=== PATIENT | female | born 1930 | race African-American/Black ===

== ENCOUNTER 2018-02-06 16:49 | Observation (INO) ==
[2018-02-06] MEDS ORDERED: Morphine Inj 4 MG/ML Vial IV.PUSH ONE (17:06)
--- NOTE | 2018-02-06 18:05 | ED ---
HPI General Chief Complaint: Chest Pain Stated Complaint: Chest Pain Time Seen by Provider: 02/06/18 16:55 Source: patient and EMS Mode of arrival: EMS Limitations: no limitations History of Present Illness HPI narrative: 87-year-old female the presents to the ED for evaluation of chest pain and abdominal pain. Patient's had chest pain and abdominal pain for about an hour before coming. Per patient she was sitting when the pain started. Most of the pain appears to be from what patient is telling me and pointing to the right epigastric area of the abdomen and the chest and states that if feels like she has palpitations. Per patient she does not feel nauseous or vomit. She denies any history of this in the past. She is not a great historian but states that she does not take any blood thinners. She denies any history of heart disease on herself. Unclear if she takes any medications at this time. She states that she does get some shortness of breath with it. She was given nitroglycerin and aspirin with some improvement of symptoms from pain being in the 8 out of 10 to the 6 out of 10. She was found to be hypertensive by [facility]. Related Data Home Medications Medication Instructions Recorded Confirmed Unable to Obtain Home Meds 02/06/18 02/06/18 Allergies Allergy/AdvReac Type Severity Reaction Status Date / Time No Known Allergies Allergy Verified 02/06/18 17:02 Review of Systems ROS: all other systems reviewed are negative [facility] Medical History Medical History COPD (chronic obstructive pulmonary disease) (Acute) Palpitations (Acute) Social History Social History Smoking Status: Never smoker How Often Do You Have a Drink Containing Alcohol: Never Recent Travel in [facility] within the Last 8 Weeks: No Recent Out of Country Travel within the Last 8 Weeks: No Immunization History Tetanus Immunization: Unsure Exam Narrative Exam Narrative: GENERAL: Well appearing SKIN: Focused skin assessment warm/dry. HEAD: Atraumatic. Normocephalic. EYES: Pupils equal and round. No scleral icterus. No injection or drainage. ENT: No nasal bleeding or discharge. Mucous membranes pink and moist. Tongue is midline. No uvula deviation. NECK: Trachea midline. No JVD. CARDIOVASCULAR: Regular rate and rhythm. No murmur appreciated. RESPIRATORY: No accessory muscle use. Clear to auscultation. Breath sounds equal bilaterally. GASTROINTESTINAL: Abdomen soft, tender to touch in the epigastric area, nondistended. Hepatic and splenic margins not palpable. MUSCULOSKELETAL: No obvious deformities. No clubbing. No cyanosis. No edema. Full range of motion of the upper and lower extremities bilaterally. 2+ pulses bilaterally. NEUROLOGICAL: Awake and alert. No obvious cranial nerve deficits. Motor grossly within normal limits. Normal speech. PSYCHIATRIC: Appropriate mood and affect; insight and judgment normal. Course Initial Documented Vital Signs Temperature 98.8 F 02/06/18 16:57 Pulse Rate 61 02/06/18 16:57 Respiratory Rate 20 02/06/18 16:57 Blood Pressure 200/91 H 02/06/18 16:57 Pulse Oximetry 99 02/06/18 16:57 Last Documented Vital Signs Temperature 98.8 F 02/06/18 16:57 Pulse Rate 60 02/06/18 19:05 Respiratory Rate 17 02/06/18 19:05 Blood Pressure 183/77 H 02/06/18 19:05 Pulse Oximetry 99 02/06/18 19:05 Medical Decision Making [facility] Narrative Medical decision making narrative: 87-year-old female that presents to the ED for evaluation of chest pain and abdominal pain. Patient was properly examined and was found to have signs and symptoms which appeared to be more consistent with abdominal pain. Labs and imaging were ordered. Labs and imaging showed some gallstones but otherwise unremarkable exam. No sign of cholecystitis. No sign of heart disease at this time. Recommendation by my attending Dr. Peña is for admission to the chest pain center for further evaluation. Spoke with the family and patient in length and apparently patient has had some episodes like this in the past. She is currently following with a GI doctor for the gallbladder but currently they have no intention of doing any surgery. They have never done a stress test on her and she does have risk factors including high blood pressure, age and family history. Because of this at the recommend admission to chest pain center for chest pain center rule out. Per family the way she describes the pain is more like pressure on her mid chest and goes from one side to the other. Patient was already given aspirin and nitroglycerin by [facility]. When I went to talk to the family and patient about the results patient was completely pain-free. Patient and family agree with admission to the chest pain center for chest pain center rule out. Patient was admitted to chest pain center by me. Medical Screen Exam Complete: Yes Emergency Medical Condition: Yes Differential Diagnosis Differential Diagnosis: Chest pain versus typical chest pain versus gallbladder disease versus pancreatitis versus acute abdomen versus normal exam Medical Records Medical records reviewed: Yes I reviewed the patient's medical records. Lab Data Lab results reviewed: Yes I reviewed the patient's lab results. Lab results narrative: troponin and CK negative Result diagrams: 02/06/18 17:15 02/06/18 17:15 Lab Results 02/06/18 02/06/18 02/06/18 Range/Units 17:15 17:15 17:15 WBC 8.3 (4.0-11.0) th/mm3 RBC 3.98 L (4.00-5.30) mil/mm3 Hgb 13.6 (11.6-15.3) gm/dL Hct 38.1 (35.0-46.0) % MCV 95.9 (80.0-100.0) fL MCH 34.1 H (27.0-34.0) pg MCHC 35.6 (32.0-36.0) % RDW 14.3 (11.6-17.2) % Plt Count 191 (150-450) th/mm3 MPV 10.2 (7.0-11.0) fL Prelim Diff (Auto) Slide review pending Neut % (Auto) 57.3 (16.0-70.0) % Lymph % (Auto) 31.3 (9.0-44.0) % [place] % (Auto) 9.1 H (0.0-8.0) % Eos % (Auto) 1.6 (0.0-4.0) % Baso % (Auto) 0.7 (0.0-2.0) % Neut # (Auto) 4.8 (1.8-7.7) th/mm3 Lymph # (Auto) 2.6 (1.0-4.8) th/mm3 [place] # (Auto) 0.8 (0.0-0.9) th/mm3 Eos # (Auto) 0.1 (0.0-0.4) th/mm3 Baso # (Auto) 0.1 (0.0-0.2) th/mm3 WBC Differential . Diff Scan Auto diff confirmed Differential Comment . Platelet Estimate Normal (Normal) Platelet Morphology Normal (Normal) PT 10.3 (9.8-11.6) sec INR 1.0 Ratio APTT 22.2 L (24.3-30.1) sec Sodium 138 (136-145) meq/L Potassium 4.9 (3.5-5.1) meq/L Chloride 104 (98-107) meq/L Carbon Dioxide 26.8 (21.0-32.0) meq/L Anion Gap 7 (5-15) meq/L BUN 20 H (7-18) mg/dL Creatinine 0.91 (0.50-1.00) mg/dL Estimated GFR 71 L (>89) mL/min Random Glucose 89 (74-106) mg/dL Lactic Acid (0.4-2.0) mmol/L Calcium 9.3 (8.5-10.1) mg/dL Total Bilirubin 0.7 (0.2-1.0) mg/dL AST 34 (15-37) U/L ALT 23 (10-53) U/L Alkaline Phosphatase 99 (45-117) U/L Total Creatine Kinase 121 (26-192) U/L CK-MB (CK-2) Less than 1.0 (0.5-3.6) ng/mL Troponin I Less than 0.02 L (0.02-0.05) ng/mL Total Protein 8.2 (6.4-8.2) g/dL Albumin 3.6 (3.4-5.0) g/dL Lipase 55 L (73-393) U/L 02/06/18 Range/Units 18:00 WBC (4.0-11.0) th/mm3 RBC (4.00-5.30) mil/mm3 Hgb (11.6-15.3) gm/dL Hct (35.0-46.0) % MCV (80.0-100.0) fL MCH (27.0-34.0) pg MCHC (32.0-36.0) % RDW (11.6-17.2) % Plt Count (150-450) th/mm3 MPV (7.0-11.0) fL Prelim Diff (Auto) Neut % (Auto) (16.0-70.0) % Lymph % (Auto) (9.0-44.0) % [place] % (Auto) (0.0-8.0) % Eos % (Auto) (0.0-4.0) % Baso % (Auto) (0.0-2.0) % Neut # (Auto) (1.8-7.7) th/mm3 Lymph # (Auto) (1.0-4.8) th/mm3 [place] # (Auto) (0.0-0.9) th/mm3 Eos # (Auto) (0.0-0.4) th/mm3 Baso # (Auto) (0.0-0.2) th/mm3 WBC Differential Diff Scan Differential Comment Platelet Estimate (Normal) Platelet Morphology (Normal) PT (9.8-11.6) sec INR Ratio APTT (24.3-30.1) sec Sodium (136-145) meq/L Potassium (3.5-5.1) meq/L Chloride (98-107) meq/L Carbon Dioxide (21.0-32.0) meq/L Anion Gap (5-15) meq/L BUN (7-18) mg/dL Creatinine (0.50-1.00) mg/dL Estimated GFR (>89) mL/min Random Glucose (74-106) mg/dL Lactic Acid 1.4 (0.4-2.0) mmol/L Calcium (8.5-10.1) mg/dL Total Bilirubin (0.2-1.0) mg/dL AST (15-37) U/L ALT (10-53) U/L Alkaline Phosphatase (45-117) U/L Total Creatine Kinase (26-192) U/L CK-MB (CK-2) (0.5-3.6) ng/mL Troponin I (0.02-0.05) ng/mL Total Protein (6.4-8.2) g/dL Albumin (3.4-5.0) g/dL Lipase (73-393) U/L Imaging Data Attestation: I personally reviewed and interpreted this imaging study as follows : Radiologist's impression: Abdomen/Pelvis CT 02/06/18 17:06 CONCLUSION: 1. Prominent gallbladder without definite gallstones 2. Large amount of stool seen throughout the colon 3. Lung bases are clear. Gallbladder Ultrasound 02/06/18 17:06 CONCLUSION: 1. Gallstones in a somewhat benign-appearing gallbladder without tenderness to palpation. Chest X-Ray 02/06/18 21:58 CONCLUSION: Negative for an acute process ECG Data Attestation: I personally reviewed and interpreted this ECG as follows: Interpretation: EKG shows junctional rhythm with no sign of acute ischemia and arrhythmia. [place] interval of 128 ms, ventricular rate of 61 bpm. No sign of ST elevation read by me and attending. Discharge Plan Discharge Disposition Patient Disposition: 30 Still Patient Discharge Details Diagnosis: Chest pain Physicians Team ED Provider: Anjali Peña ED Midlevel Provider: Jose Bah Primary Care Provider: UNKNOWN, Attending Provider: Raj Lugo Status ED Status: Admitted Observation Patient
[2018-02-06 18:07] LABS: Baso # (Auto) 0.1 th/mm3 (0.0-0.2); Baso % (Auto) 0.7 % (0.0-2.0); Eos # (Auto) 0.1 th/mm3 (0.0-0.4); Eos % (Auto) 1.6 % (0.0-4.0); Hematocrit 38.1 % (35.0-46.0); Hemoglobin 13.6 gm/dL (11.6-15.3); Lymph # (Auto) 2.6 th/mm3 (1.0-4.8); Lymph % (Auto) 31.3 % (9.0-44.0); Mean Corpuscular HGB Conc 35.6 % (32.0-36.0); Mean Corpuscular Hemoglobin 34.1 pg (27.0-34.0); Mean Corpuscular Volume 95.9 fL (80.0-100.0); Mean Platelet Volume 10.2 fL (7.0-11.0); Mono # (Auto) 0.8 th/mm3 (0.0-0.9); Mono % (Auto) 9.1 % (0.0-8.0); Neut # (Auto) 4.8 th/mm3 (1.8-7.7); Neut % (Auto) 57.3 % (16.0-70.0); Platelet Count 191 th/mm3 (150-450); Red Blood Count 3.98 mil/mm3 (4.00-5.30); Red Cell Distribution Width 14.3 % (11.6-17.2); White Blood Count 8.3 th/mm3 (4.0-11.0)
[2018-02-06 18:19] LABS: Activated Partial Thrombo Time 22.2 sec (24.3-30.1); Prothrombin Time 10.3 sec (9.8-11.6)
[2018-02-06 18:36] LABS: Platelet Estimate Normal (Normal); Platelet Morphology Normal (Normal)
[2018-02-06 18:44] LABS: Alanine Aminotransferase 23 U/L (10-53)
[2018-02-06 18:51] LABS: Albumin 3.6 g/dL (3.4-5.0); Alkaline Phosphatase 99 U/L (45-117); Anion Gap 7 meq/L (5-15); Aspartate Aminotransferase 34 U/L (15-37); Blood Urea Nitrogen 20 mg/dL (7-18); Calcium 9.3 mg/dL (8.5-10.1); Carbon Dioxide 26.8 meq/L (21.0-32.0); Chloride 104 meq/L (98-107); Creatine Kinase 121 U/L (26-192); Glomerular Filtration Rate 71 mL/min (>89); Glucose,Random 89 mg/dL (74-106); Lipase 55 U/L (73-393); Potassium 4.9 meq/L (3.5-5.1); Sodium 138 meq/L (136-145); Total Protein 8.2 g/dL (6.4-8.2)
--- NOTE | 2018-02-06 18:54 | US ---
EXAM DATE: 02/06/2018 5:06 PM EDT AGE/SEX: 87 years / Female INDICATIONS: RUQ pain. CLINICAL DATA: This is the patient's initial encounter. Patient reports that signs and symptoms have been present for 1 day and indicates a pain score of 6/10. MEDICAL/SURGICAL HISTORY: . Palpitations. None. COMPARISON: No prior exams available for comparison. MEASUREMENTS: Liver:__ 17.0 cm. Common Bile Duct:__ 3mm. FINDINGS: Liver: Increased echotexture without focal lesion or ductal dilation. Portal Vein: Hepatopedal flow seen in portal vein. Common Duct: No intraluminal mass or stone visualized. Gallbladder: Demonstrates no wall thickening or pericholecystic fluid. Stones visualized. Pancreas: Not well visualized. Right Kidney: Increased echotexture. No mass or hydronephrosis. Other: No ascites CONCLUSION: 1. Gallstones in a somewhat benign-appearing gallbladder without tenderness to palpation. Electronically signed by: Nilton Lewis MD 02/06/2018 6:53 PM EDT
--- NOTE | 2018-02-06 20:24 | CT ---
EXAM DATE: 02/06/2018 7:54 PM EDT AGE/SEX: 87 years / Female INDICATIONS: Epigastric abdomen pain today. CLINICAL DATA: This is the patient's initial encounter. Patient reports that signs and symptoms have been present for 1 day and indicates a pain score of 5/10. MEDICAL/SURGICAL HISTORY: Chronic obstructive pulmonary disease. None. ORAL CONTRAST: No oral contrast ingested. RADIATION DOSE: 6.64 CTDI (mGy) COMPARISON: No prior exams available for comparison. TECHNIQUE: Multiple contiguous axial images were obtained through the abdomen and pelvis following b olus infusion of 80 ml Omnipaque 350 (iohexol) nonionic water-soluble contrast as a single exam dos e. No oral contrast ingested. Using automated exposure control and adjustment of the mA and/or kV ac cording to patient size, radiation dose was kept as low as reasonably achievable to obtain optimal di agnostic quality images. DICOM format image data is available electronically for review and comparis on. FINDINGS: Lower Lungs: The visualized lower lungs are clear. Liver: The liver has a homogeneous density without space-occupying lesion. There is no dilation of th e biliary tree. Gallbladder is prominent without definite stones. Spleen: Homogeneous density without enlargement. Pancreas: Unremarkable without mass or calcification. Kidneys: Normal in size and shape. No evidence of mass or hydronephrosis. Adrenal Glands: Unremarkable. Aorta: The aorta and proximal iliac vessels are grossly unremarkable without aneurysmal dilation. Bowel/Mesentery : large amount of stool is seen throughout the colon Abdominal Wall: Intact. Retroperitoneum: No evidence of adenopathy in the retrocrural, para-aortic, or deep pelvic regions. Bladder: Contours are smooth. Reproductive Organs: No abnormal masses or calcifications seen. Inguinal: The inguinal region is unremarkable without evidence of adenopathy. Bony Structures: Mild scoliosis with degenerative changes. CONCLUSION: 1. Prominent gallbladder without definite gallstones 2. Large amount of stool seen throughout the colon 3. Lung bases are clear. Electronically signed by: Nilton Lewis MD 02/06/2018 8:23 PM EDT
[2018-02-06] MEDS ORDERED: Morphine Inj 4 MG/ML Vial IV.PUSH PRN (21:52)
[2018-02-06] MEDS ORDERED: Acetaminophen 500 MG Tablet PO PRN (21:52)
--- NOTE | 2018-02-06 22:28 | XR ---
EXAM DATE: 02/06/2018 9:58 PM EDT AGE/SEX: 87 years / Female INDICATIONS: Chest pain. CLINICAL DATA: This is the patient's initial encounter. Patient reports that signs and symptoms have been present for 1 day and indicates a pain score of 6/10. MEDICAL/SURGICAL HISTORY: Hypertension. None. COMPARISON: No prior exams available for comparison. FINDINGS: A single AP view of the chest demonstrates the lungs to be symmetrically aerated without evidence of mass, infiltrate or effusion. The cardiomediastinal contours are unremarkable. Osseous structures a re intact. CONCLUSION: Negative for an acute process Electronically signed by: Nilton Lewis MD 02/06/2018 10:27 PM EDT
[2018-02-06 23:34] LABS: Creatine Kinase 49 U/L (26-192)
[2018-02-07 03:29] LABS: Creatine Kinase 59 U/L (26-192)
[2018-02-07 09:17] LABS: Bilirubin,Urine Negative (Negative); Clarity,Urine Clear (Clear); Color,Urine Yellow (Yellw/Straw); Glucose,Urine (UA) Negative (Negative); Leukocyte Esterase,Urine Negative (Negative); Mucus,Urine Few /lpf (Occasional); Nitrite,Urine Negative (Negative); Specific Gravity,Urine 1.049 (1.002-1.035); Squamous Epithelial Cell,Urine <1 /hpf (0-5)
--- NOTE | 2018-02-07 09:56 | P.HPCA ---
History of Present Illness Primary Care Physician: UNKNOWN Chief Complaint: Abdominal pain History of Present Illness: This is an 87-year-old female with history of hypertension, hyperlipidemia, gallstones that presents to ED via [facility] with complaint of abdominal pain. Patient points right upper quadrant. She is currently been having this intermittently for at least 4 months. Has not found any particular to bring on the discomfort. States that yesterday's episode began around 2:00 in the afternoon. She had nothing for lunch. For breakfast she had yogurt, banana, and some Cheerios. And no discomfort afterwards. Denies nausea or vomiting. Denies diarrhea or constipation. States she had a bowel moment yesterday which is her normal bowel and. Denies any blood in stool. Denies shortness of breath or diaphoresis. She also complains of feeling palpitations in her abdomen. She describes it as a throbbing. That is also been intermittent for [address] Alfaro for some of the symptoms and had a Holter monitor and her daughter who is now in the room states that she was told that her thing was okay. Patient also saw a hospice care transitions coordinator and Debbi had some tests done and showed that she had some gallstones but did not feels that that was causing her the issues. She was concerned yesterday when the discomfort was more intense. She does not know how long it lasted but it did resolve some time while in the ED. She denies ever having any chest discomforts. Hypertension, hyperlipidemia, gallstones. Denies diabetes and known CAD. Lifetime non-smoker. Denies alcohol or illicit drug use. Denies family history of CAD. - Diagnosis (1) Abdominal pain (2) Hypertension (3) Hyperlipidemia (4) Gallstones Review of Systems General: Patient denies fevers, chills, and recent travel. HEENT: Patient denies headache, sore throat, difficulty swallowing. Cardiovascular: Denies chest discomfort as mentioned above. Denies sensation of heart beating rapidly or irregularly. No syncope. Denies diaphoresis. Respiratory: Denies shortness of breath or inspirational chest discomfort. Denies coughing wheezing or hemoptysis. GI: Planes of abdominal pain and points to right upper quadrant. Patient denies nausea, vomiting, constipation, diarrhea, and bloody stools. States she had a normal bowel movement yesterday morning. She generally has a daily bowel movement. Musculoskeletal: Patient denies joint pain or edema. Denies calf pain or edema. Neurovascular: Patient denies numbness, tingling, weakness in extremities. Denies headache. Endocrine: Denies polyuria and polydipsia. Hematologic: Denies easy bruising. Skin: Denies rash or itching. PMFSH - History History Provided By: Patient - Medical History Medical History: Medical History (Last Reviewed 02/06/18 @ 18:02 by SANYA Sullivan) COPD (chronic obstructive pulmonary disease) Palpitations - Tobacco History Second Hand Smoke Exposure: No Smoking Status: Never smoker - Alcohol History How Often Do You Have a Drink Containing Alcohol: Never - Substance Use History Substance History: No History of Abuse - Travel History Recent Travel in the [place] Within the Last 8 Weeks: No Recent Travel Out of the Country Within the Last 8 Weeks: No - Immunization History Tetanus Immunization: Unsure Medications and Allergies Active Medications: Active Medications Acetaminophen (Tylenol) 500 mg PO Q4H PRN PRN Reason: HEADACHE Last Admin: 02/07/18 09:02 Dose: 500 mg Hydrocodone Bitart/Acetaminophen (Marydel 7.5/325) 1 tab PO Q4H PRN PRN Reason: PAIN SCALE 1 TO 7 Losartan Potassium (Cozaar) 50 mg PO DAILY [facility] Morphine Sulfate (Morphine Inj) 2 mg IV.PUSH Q4H PRN PRN Reason: PAIN SCALE 8 TO 10 Non-Formulary Medication (Lovastatin [Lovastatin]) 40 mg PO DAILY [facility] Ondansetron HCl (Zofran Inj) 4 mg IV.PUSH Q6H PRN PRN Reason: NAUSEA Sodium Chloride (Ns Flush) 2 ml IV.FLUSH BID [facility] Last Admin: 02/07/18 09:02 Dose: 2 ml Sodium Chloride (Ns Flush) 2 ml IV.FLUSH PRN PRN PRN Reason: FLUSH AFTER USING IV ACCESS Allergies Allergy/AdvReac Type Severity Reaction Status Date / Time No Known Allergies Allergy Verified 02/06/18 17:02 Home Medications Medication Instructions Recorded Confirmed Type aspirin [Aspir-81] 81 mg PO DAILY 02/07/18 02/07/18 History losartan 50 mg PO DAILY 02/07/18 02/07/18 History lovastatin 40 mg PO DAILY 02/07/18 02/07/18 History Exam Vital signs: Vital Signs 02/06/18 16:57 02/06/18 19:05 02/06/18 23:04 Temperature 98.8 F Pulse Rate 61 60 55 L Respiratory Rate 20 17 18 Blood Pressure 200/91 H 183/77 H 150/67 H Pulse Oximetry 99 99 97 02/07/18 00:00 02/07/18 00:09 02/07/18 04:00 Temperature 97.6 F 97.7 F Pulse Rate 57 L 56 L 60 Respiratory Rate 18 18 Blood Pressure 130/59 L 132/59 L Pulse Oximetry 100 97 02/07/18 07:41 02/07/18 08:00 Temperature 97.9 F Pulse Rate 57 L 55 L Respiratory Rate 16 Blood Pressure 164/72 H Pulse Oximetry 97 Intake & Output 02/06/18 02/07/18 02/07/18 18:59 06:59 18:59 Weight 68.039 kg 68.03 kg Other: Date of Last Bowel Movement 02/06/18 Weight On Admission 68.03 kg Narrative: GENERAL: This is a well-nourished, well-developed patient, in no apparent distress. Patient speaks in clear complete sentences. Patient is pleasant. HEENT: Head is atraumatic and normocephalic. Neck is supple without lymphadenopathy and trachea is midline. No JVD or carotid bruits. CARDIOVASCULAR: Regular rate and rhythm without murmurs, gallops, or rubs. RESPIRATORY: Clear to auscultation. Breath sounds equal bilaterally. No wheezes , rales, or rhonchi. Chest wall is nontender. No use of accessory muscles. GASTROINTESTINAL: Right upper quadrant and epigastric region are tender. Abdomen is nondistended. Abdomen soft. No obvious pulsatile mass or bruit. No CVA tenderness. Strong femoral pulses bilaterally. Normal bowel sounds in all quadrants. MUSCULOSKELETAL: Patient is moving upper and lower extremities freely. No calf tenderness or edema, no Homans sign. Strong pulses in upper and lower extremities. NEUROLOGICAL: Patient is alert and oriented. Cranial nerves 2-12 are grossly intact. No focal deficits and speech is clear. SKIN: No rash and turgor is normal. Results 02/06/18 17:15 02/06/18 17:15 Cardiac Enzymes 02/06/18 02/06/18 02/07/18 Range/Units 17:15 22:50 03:00 AST 34 (15-37) U/L CK-MB (CK-2) Less than 1.0 (0.5-3.6) ng/mL Troponin I Less than 0.02 L Less than 0.02 L Less than 0.02 L (0.02-0.05) ng/mL Coagulation 02/06/18 Range/Units 17:15 PT 10.3 (9.8-11.6) sec APTT 22.2 L (24.3-30.1) sec CBC 02/06/18 Range/Units 17:15 WBC 8.3 (4.0-11.0) th/mm3 RBC 3.98 L (4.00-5.30) mil/mm3 Hgb 13.6 (11.6-15.3) gm/dL Hct 38.1 (35.0-46.0) % Plt Count 191 (150-450) th/mm3 Neut # (Auto) 4.8 (1.8-7.7) th/mm3 Lymph # (Auto) 2.6 (1.0-4.8) th/mm3 [place] # (Auto) 0.8 (0.0-0.9) th/mm3 Eos # (Auto) 0.1 (0.0-0.4) th/mm3 Baso # (Auto) 0.1 (0.0-0.2) th/mm3 Comprehensive Metabolic Panel 02/06/18 Range/Units 17:15 Sodium 138 (136-145) meq/L Potassium 4.9 (3.5-5.1) meq/L Chloride 104 (98-107) meq/L Carbon Dioxide 26.8 (21.0-32.0) meq/L BUN 20 H (7-18) mg/dL Creatinine 0.91 (0.50-1.00) mg/dL Calcium 9.3 (8.5-10.1) mg/dL AST 34 (15-37) U/L ALT 23 (10-53) U/L Alkaline Phosphatase 99 (45-117) U/L Total Protein 8.2 (6.4-8.2) g/dL Albumin 3.6 (3.4-5.0) g/dL Intake and Output 02/06/18 02/07/18 02/07/18 22:59 06:59 14:59 Other: Date of Last Bowel Movement 02/06/18 Weight 68.039 kg 68.03 kg Weight On Admission 68.03 kg - Imaging and Cardiology Imaging: Impressions Abdomen/Pelvis CT 02/06/18 17:06 CONCLUSION: 1. Prominent gallbladder without definite gallstones 2. Large amount of stool seen throughout the colon 3. Lung bases are clear. Gallbladder Ultrasound 02/06/18 17:06 CONCLUSION: 1. Gallstones in a somewhat benign-appearing gallbladder without tenderness to palpation. Chest X-Ray 02/06/18 21:58 CONCLUSION: Negative for an acute process EKG interpretations - EKG EKG shows: sinus rhythm Caprini VTE Risk Assessment Caprini VTE Risk Assessment: Moderate/High Risk (score >= 2) Caprini Risk Assessment Model: Point Value = 1 Point Value = 2 Point Value = 3 Point Value = 5 Age 41-60 Minor surgery BMI > 25 kg/m2 Swollen legs Varicose veins or History of unexplained or recurrent spontaneous Oral contraceptives or hormone replacement Sepsis (< 1 month) Serious lung disease, including pneumonia (< 1 month) Abnormal pulmonary function Acute myocardial infarction Congestive heart failure (< 1 month) History of inflammatory bowel disease Medical patient at bed rest Age 61-74 Arthroscopic surgery Major open surgery (> 45 min) Laparoscopic surgery (> 45 min) Malignancy Confined to bed (> 72 hours) Immobilizing plaster cast Central venous access Age >= 75 History of VTE Family history of VTE Factor V Leiden Prothrombin [id number] Lupus anticoagulant Anticardiolipin antibodies Elevated serum homocysteine Heparin-induced thrombocytopenia Other congenital or acquired thrombophilia Stroke (< 1 month) Elective arthroplasty Hip, pelvis, or leg fracture Acute spinal cord injury (< 1 month) Prophylaxis Regimen: Total Risk Factor Score Risk Level Prophylaxis Regimen 0-1 Low Early ambulation 2 Moderate Order ONE of the following: *Sequential Compression Device (SCD) *Heparin 5000 units SQ BID 3-4 Higher Order ONE of the following medications: *Heparin 5000 units SQ TID *Enoxaparin/Lovenox 40 mg SQ daily (WT < 150 kg, CrCl > 30 mL/min) *Enoxaparin/Lovenox 30 mg SQ daily (WT < 150 kg, CrCl > 10-29 mL/min) *Enoxaparin/Lovenox 30 mg SQ BID (WT < 150 kg, CrCl > 30 mL/min) AND/OR *Sequential Compression Device (SCD) 5 or more Highest Order ONE of the following medications: *Heparin 5000 units SQ TID (Preferred with Epidurals) *Enoxaparin/Lovenox 40 mg SQ daily (WT < 150 kg, CrCl > 30 mL/min) *Enoxaparin/Lovenox 30 mg SQ daily (WT < 150 kg, CrCl > 10-29 mL/min) *Enoxaparin/Lovenox 30 mg SQ BID (WT < 150 kg, CrCl > 30 mL/min) AND *Sequential Compression Device (SCD) Assessment and Plan - Assessment (1) Abdominal pain Code(s): R10.9 - Unspecified abdominal pain Status: Acute (2) Hypertension Code(s): I10 - Essential (primary) hypertension Status: Acute (3) Hyperlipidemia Code(s): E78.5 - Hyperlipidemia, unspecified Status: Acute (4) Gallstones Code(s): K80.20 - Calculus of gallbladder without cholecystitis without obstruction Status: Acute - Plan * Abdominal pain: Patient had CT abdomen pelvis and gallbladder ultrasound in the ED. CT and pelvis revealed prominent gallbladder but no stones. Large amount of stool throughout the colon. Gallbladder ultrasound found gallstones, somewhat benign appearing gallbladder without tenderness to palpate. Patient will be evaluated by Dr. Lugo of cardiology and chest pain center and further plan pending that evaluation. Patient denies having chest discomforts. Patient was evaluated by Dr. Lugo [facility] * Hypertension: Continue medication. * Hyperlipidemia: Continue medication. Patient is stable at this time. She is agreeable to this plan. H&P: Quality - VTE Deep Vein Thrombosis/Pulmonary Embolism Present on Admission: No
[2018-02-07] MEDS ORDERED: Sodium Chlor 0.9% Inj 500 ML IV.SIG SCH (11:22)
[2018-02-07] MEDS ORDERED: Aluminum/Magnesium/Simethacone Susp 30 ML UDC PO PRN (12:44)
--- NOTE | 2018-02-07 12:45 | P.PNIM ---
Subjective Interval history: 87-year-old -[place] female with history of HTN and HLD initially admitted to the chest pain center for evaluation of epigastric pain. ACS was ruled out. Cardiology has transferred care so that her epigastric pain can be further worked up from a GI perspective. On admission, gallbladder ultrasound showed gallstones with negative Montemayor sign and CT A/P showed a prominent gallbladder without definite gallstones. She has no leukocytosis, fever, and her LFTs and lipase were within normal limits. Urinalysis was negative for infection. The patient states that her pain is predominantly located in the epigastric region and described as sharp. It radiates into the right and left upper quadrants. The pain has been present for at least 3-4 months. She states spicy and fried foods exacerbate her pain; however, yesterday she states she had some Cheerios and a banana for breakfast in the morning but then the pain began around 2 PM without eating anything right prior. She has been told she had gallstones in the past but she states she will not have elective surgery at her age. She states in the past she has had an EGD showing ulcers but states she has not had one in some time. The patient is concerned because she states the pain was so severe yesterday she was crying. She would like to see if she could have another EGD done. She denies associated nausea, vomiting , diarrhea, melena, or hematochezia. At home she takes Pepto-Bismol as needed for indigestion. She continues to have ongoing epigastric pain but states that the pain medicines have made it better. PMH: HTN, HLD Surgical hx: x 3, L eye implant Family hx: mother was blind, father had diabetes Social hx: lives alone, is in custodial, denies EtOH/tobacco/illicit drugs Physical Exam Vital signs: Vital Signs 02/06/18 16:57 02/06/18 19:05 02/06/18 23:04 Temperature 98.8 F Pulse Rate 61 60 55 L Respiratory Rate 20 17 18 Blood Pressure 200/91 H 183/77 H 150/67 H Pulse Oximetry 99 99 97 02/07/18 00:00 02/07/18 00:09 02/07/18 04:00 Temperature 97.6 F 97.7 F Pulse Rate 57 L 56 L 60 Respiratory Rate 18 18 Blood Pressure 130/59 L 132/59 L Pulse Oximetry 100 97 02/07/18 07:41 02/07/18 08:00 02/07/18 11:20 Temperature 97.9 F 98.3 F Pulse Rate 57 L 55 L 52 L Respiratory Rate 16 16 Blood Pressure 164/72 H 153/69 H Pulse Oximetry 97 97 Intake & Output 02/06/18 02/07/18 02/07/18 18:59 06:59 18:59 Weight 68.039 kg 68.03 kg Other: Date of Last Bowel Movement 02/06/18 Weight On Admission 68.03 kg Narrative: GENERAL: WN, WD AA female resting in bed in NAD. SKIN: Warm and dry. HEENT: AT/NC. Left ptosis. MMM. NECK: Supple no tender LAD or JVD. HEART: RRR no m/r/g. LUNGS: CTAB without wheezes or crackles. ABDOMEN: +BS, soft, TTP over epigastrium and RUQ. No guarding or rebound. EXTREMITIES: No LE edema. NEURO: Awake and alert. Results - Labs CBC & Chem 7: 02/06/18 17:15 02/06/18 17:15 Laboratory Results - last 24 hr 02/06/18 02/06/18 02/06/18 17:15 17:15 17:15 WBC 8.3 RBC 3.98 L Hgb 13.6 Hct 38.1 MCV 95.9 MCH 34.1 H MCHC 35.6 RDW 14.3 Plt Count 191 MPV 10.2 Prelim Diff (Auto) Slide review pending Neut % (Auto) 57.3 Lymph % (Auto) 31.3 [place] % (Auto) 9.1 H Eos % (Auto) 1.6 Baso % (Auto) 0.7 Neut # (Auto) 4.8 Lymph # (Auto) 2.6 [place] # (Auto) 0.8 Eos # (Auto) 0.1 Baso # (Auto) 0.1 WBC Differential . Diff Scan Auto diff confirmed Differential Comment . Platelet Estimate Normal Platelet Morphology Normal PT 10.3 INR 1.0 APTT 22.2 L Sodium 138 Potassium 4.9 Chloride 104 Carbon Dioxide 26.8 Anion Gap 7 BUN 20 H Creatinine 0.91 Estimated GFR 71 L Random Glucose 89 Lactic Acid Calcium 9.3 Total Bilirubin 0.7 AST 34 ALT 23 Alkaline Phosphatase 99 Total Creatine Kinase 121 CK-MB (CK-2) Less than 1.0 Troponin I Less than 0.02 L Total Protein 8.2 Albumin 3.6 Lipase 55 L Urine Color Urine Clarity Urine pH Ur Specific [place] Urine Protein Urine Glucose (UA) Urine Ketones Urine Occult Blood Urine Nitrate Urine Bilirubin Urine Urobilinogen Ur Leukocyte Esterase Urine RBC Urine WBC Ur Squamous Epith Cells Urine Mucus Micro UA Comment Ur Microscopic Review Urine Culture Comments 02/06/18 02/06/18 02/07/18 18:00 22:50 03:00 WBC RBC Hgb Hct MCV MCH MCHC RDW Plt Count MPV Prelim Diff (Auto) Neut % (Auto) Lymph % (Auto) [place] % (Auto) Eos % (Auto) Baso % (Auto) Neut # (Auto) Lymph # (Auto) [place] # (Auto) Eos # (Auto) Baso # (Auto) WBC Differential Diff Scan Differential Comment Platelet Estimate Platelet Morphology PT INR APTT Sodium Potassium Chloride Carbon Dioxide Anion Gap BUN Creatinine Estimated GFR Random Glucose Lactic Acid 1.4 Calcium Total Bilirubin AST ALT Alkaline Phosphatase Total Creatine Kinase 49 59 CK-MB (CK-2) Troponin I Less than 0.02 L Less than 0.02 L Total Protein Albumin Lipase Urine Color Urine Clarity Urine pH Ur Specific [place] Urine Protein Urine Glucose (UA) Urine Ketones Urine Occult Blood Urine Nitrate Urine Bilirubin Urine Urobilinogen Ur Leukocyte Esterase Urine RBC Urine WBC Ur Squamous Epith Cells Urine Mucus Micro UA Comment Ur Microscopic Review Urine Culture Comments 02/07/18 08:50 WBC RBC Hgb Hct MCV MCH MCHC RDW Plt Count MPV Prelim Diff (Auto) Neut % (Auto) Lymph % (Auto) [place] % (Auto) Eos % (Auto) Baso % (Auto) Neut # (Auto) Lymph # (Auto) [place] # (Auto) Eos # (Auto) Baso # (Auto) WBC Differential Diff Scan Differential Comment Platelet Estimate Platelet Morphology PT INR APTT Sodium Potassium Chloride Carbon Dioxide Anion Gap BUN Creatinine Estimated GFR Random Glucose Lactic Acid Calcium Total Bilirubin AST ALT Alkaline Phosphatase Total Creatine Kinase CK-MB (CK-2) Troponin I Total Protein Albumin Lipase Urine Color Yellow Urine Clarity Clear Urine pH 6.0 Ur Specific [place] 1.049 H Urine Protein Negative Urine Glucose (UA) Negative Urine Ketones Negative Urine Occult Blood Negative Urine Nitrate Negative Urine Bilirubin Negative Urine Urobilinogen 2.0 H Ur Leukocyte Esterase Negative Urine RBC 1 Urine WBC Less than 1 Ur Squamous Epith Cells <1 Urine Mucus Few H Micro UA Comment Culture not ind Ur Microscopic Review Not Reportable Urine Culture Comments Culture not ind - Imaging Impressions Abdomen/Pelvis CT 02/06/18 17:06 CONCLUSION: 1. Prominent gallbladder without definite gallstones 2. Large amount of stool seen throughout the colon 3. Lung bases are clear. Gallbladder Ultrasound 02/06/18 17:06 CONCLUSION: 1. Gallstones in a somewhat benign-appearing gallbladder without tenderness to palpation. Chest X-Ray 02/06/18 21:58 CONCLUSION: Negative for an acute process Assessment and Plan - Assessment (1) Abdominal pain Code(s): R10.9 - Unspecified abdominal pain Status: Acute (2) Cholelithiases Code(s): K80.20 - Calculus of gallbladder without cholecystitis without obstruction Status: Chronic - Plan 87-year-old -[place] female with HTN and HLD initially admitted to the chest pain center for evaluation of epigastric/chest pain. ACS has been ruled out, and care has been transferred to the hospitalist for further evaluation of patient's ongoing epigastric pain. 1. Epigastric pain Ultrasound on admission showing otherwise benign appearing gallbladder with cholelithiasis CT A/P showing prominent gallbladder and no stones LFTs within normal limits Lipase within normal limits No leukocytosis or fever Patient sounds like she does have a history of gallbladder colic exacerbated by fatty foods. However, her presentation during this admission is more epigastric pain and was unrelated to eating any fatty foods. Will consult GI for possible EGD to evaluate for gastritis, ulcers, etc. Start Protonix Tylenol as needed Maalox as needed 2. HTN Resume home losartan and monitor BPs 3. HLD Resume home statin DVT prophylaxis: heparin
--- NOTE | 2018-02-07 14:20 | ECG ---
Date Performed: 02/06/2018 Time Performed: 23:03:03 PTAGE: 87 years EKG: JUNCTIONAL BRADYCARDIA VOLTAGE CRITERIA FOR LVH ABNORMAL ECG PREVIOUS TRACING : 02/06/2018 16.59 Since previous tracing, no significant change noted DOCTOR: Raj Lugo Interpretating Date/Time 02/07/2018 14:19:05
--- NOTE | 2018-02-07 14:23 | ECG ---
Date Performed: 02/06/2018 Time Performed: 16:59:34 PTAGE: 87 years EKG: JUNCTIONAL RHYTHM MODERATE VOLTAGE CRITERIA FOR LVH, CONSIDER NORMAL VARIANT ABNORMAL RHYTH M ECG PREVIOUS TRACING : 07/16/2015 12.49 Since previous tracing, no significant change noted DOCTOR: Raj Lugo Interpretating Date/Time 02/07/2018 14:23:17
[2018-02-07] MEDS: Heparin - SQ 10,000 UNITS/ML Vial SQ SCH (21:39)
[2018-02-08] MEDS: Heparin - SQ 10,000 UNITS/ML Vial SQ SCH ×2 (08:22→20:30)
--- NOTE | 2018-02-08 08:39 | P.PN ---
Subjective Interval history: Follow up for epigastric pain, cholelithiasis. The patient reports overall feeling better. Denies any current abdominal pain, although still very tender in the epigastric region on exam. She tolerated dinner last night. Denies nausea /vomiting. She admits to taking 1 naproxen tablet daily with her morning medications. Denies any diarrhea. Denies fevers/chills. She states if she ever had an EGD, it was likely many years ago. She denies any chest pain or shortness of breath. No other medical complaints at this time. Physical Exam Vital signs: Vital Signs 02/07/18 11:20 02/07/18 16:00 02/07/18 20:00 Temperature 98.3 F 98.5 F 97.8 F Pulse Rate 52 L 54 L 67 Respiratory Rate 16 16 Blood Pressure 153/69 H 169/71 H 132/59 L Pulse Oximetry 97 98 96 02/08/18 00:00 02/08/18 04:00 02/08/18 07:15 Temperature 97.4 F L 97.8 F 97.9 F Pulse Rate 58 L 55 L 60 Respiratory Rate 18 Blood Pressure 132/60 131/60 98/44 L Pulse Oximetry 96 95 97 Intake & Output 02/07/18 02/08/18 02/08/18 18:59 06:59 18:59 Intake Total 500 / 500 120 / 120 Balance 500 / 500 120 / 120 Intake: IV 500 / 500 NS Inj 500 ML @ 60 mls/hr IV. 500 / 500 SIG .Q10H JOSE L Rx#:[id number] Oral 120 / 120 Other: # Voids 2 2 Date of Last Bowel Movement 02/07/18 Narrative: GENERAL: Well-nourished, well-developed pleasant elderly female patient in [facility]. SKIN: Warm and dry. No rash. HEENT: Normocephalic. Atraumatic. Pupils equal and round. Mucous membranes pink and moist. CARDIOVASCULAR: Regular rate and rhythm. No murmur appreciated. RESPIRATORY: No accessory muscle use. Clear to auscultation. Breath sounds equal bilaterally. GASTROINTESTINAL: Abdomen soft, nondistended, epigastric TTP. Normoactive bowel sounds x4. MUSCULOSKELETAL: No obvious deformities. Extremities without clubbing, cyanosis , or edema. NEUROLOGICAL: Awake and alert. No obvious cranial nerve deficits. Motor grossly within normal limits. Moving all extremities spontaneously. Normal speech. PSYCHIATRIC: Appropriate mood and affect; insight and judgment normal. Results - Labs CBC & Chem 7: 02/06/18 17:15 02/06/18 17:15 Laboratory Results - last 24 hr 02/07/18 08:50 Urine Color Yellow Urine Clarity Clear Urine pH 6.0 Ur Specific [place] 1.049 H Urine Protein Negative Urine Glucose (UA) Negative Urine Ketones Negative Urine Occult Blood Negative Urine Nitrate Negative Urine Bilirubin Negative Urine Urobilinogen 2.0 H Ur Leukocyte Esterase Negative Urine RBC 1 Urine WBC Less than 1 Ur Squamous Epith Cells <1 Urine Mucus Few H Micro UA Comment Culture not ind Ur Microscopic Review Not Reportable Urine Culture Comments Culture not ind - Imaging Abdomen/Pelvis CT 02/06/18 17:06 CONCLUSION: 1. Prominent gallbladder without definite gallstones 2. Large amount of stool seen throughout the colon 3. Lung bases are clear. Gallbladder Ultrasound 02/06/18 17:06 CONCLUSION: 1. Gallstones in a somewhat benign-appearing gallbladder without tenderness to palpation. Chest X-Ray 02/06/18 21:58 CONCLUSION: Negative for an acute process Assessment and Plan - Assessment (1) Abdominal pain Code(s): R10.9 - Unspecified abdominal pain Status: Acute (2) Cholelithiases Code(s): K80.20 - Calculus of gallbladder without cholecystitis without obstruction Status: Chronic - Plan 87-year-old -[place] female with HTN and HLD initially admitted to the chest pain center for evaluation of epigastric/chest pain. ACS has been ruled out, and care has been transferred to the hospitalist for further evaluation of patient's ongoing epigastric pain. Epigastric pain: Unclear etiology, Patient sounds like she does have a history of gallbladder colic exacerbated by fatty foods. However, her presentation during this admission is more epigastric pain and was unrelated to eating any fatty foods. GB ultrasound on admission showing otherwise benign appearing gallbladder with cholelithiasis CT A/P showing prominent gallbladder and no stones LFTs and lipase within normal limits No leukocytosis or fever Patient admits to daily use of naproxen, consult GI for possible EGD to evaluate for gastritis, ulcers, etc. Start Protonix Tylenol as needed, Maalox as needed -Liquid diet per GI -HIDA scan ordered HTN: Chronic, BP well-controlled Resume home losartan and monitor BPs HLD: Chronic Resume home statin DVT prophylaxis: heparin sq Discharge Planning: Going for HIDA scan today, and if negative, likely plan for EGD. Possible discharge tomorrow.
--- NOTE | 2018-02-08 11:22 | MB ---
cc: Dany Kaur MD DATE: 02/08/2018 ROOM NUMBER: [id number]. REFERRING PHYSICIAN: Dr. Mai Bryan. REASON FOR CONSULT: For abdominal pain. HISTORY OF PRESENT ILLNESS: This is an 87-year-old -[place] female who presented to the emergency room on the with right upper quadrant pain. The patient points to the right upper quadrant and right epigastric region. She states the pain was very severe to the point where she had to call an ambulance. She states the pain did not radiate to her back or shoulders and there was no nausea or vomiting. The pain lasted a few hours but did improve after getting pain medications. She underwent a CT scan with IV but no oral contrast and this was unremarkable. Ultrasound shows a gallstone. The patient was seen in the office a few months ago with a history of vague fluttering sensation in the upper abdomen and chest. She had undergone extensive testing previously including endoscopy done elsewhere and also imaging and been evaluated by cardiology. There are no alarm symptoms. The patient was sent for an upper GI series, which was unremarkable; and an abdominal ultrasound, which showed a 5 mm gallstone in the gallbladder. The patient states that this pain that brought her to the hospital is different than that fluttering sensation. PAST MEDICAL HISTORY: Remarkable for 3 C-sections and she has a history of hypertension, hyperlipidemia, and she had a left corneal transplant. SOCIAL HISTORY: The patient currently lives alone. Her was recently put into a custodial. No alcohol or tobacco use. FAMILY HISTORY: Remarkable for diabetes. MEDICATIONS: She has been taking some NSAIDs occasionally at home. Losartan 50 mg daily. ALLERGIES: SHE HAS NO KNOWN DRUG ALLERGIES. REVIEW OF SYSTEMS: She denies any shortness of breath or coughing. No weight loss. No headaches. No fever or chills. She denies any problems with constipation or diarrhea, although I note that her imaging studies do usually show a large amount of stool in her colon. 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 Remainder of the 12-point review of systems is negative. PHYSICAL EXAMINATION: GENERAL: Reveals a well-developed female in no acute distress. VITAL SIGNS: Her blood pressure is 98/44, pulse 60 and regular, respirations are 18 and nonlabored, temperature is 97.9. HEENT: Sclerae on the right is anicteric. She keeps her left eye mostly closed. SKIN: Warm and dry. NECK: Without masses. LUNGS: Clear. HEART: Sounds are regular. ABDOMEN: Soft and nondistended with very mild right upper quadrant and epigastric tenderness. No rebound or guarding. No masses. No organomegaly. EXTREMITIES: No cyanosis, clubbing, or edema. SKIN: Warm and dry. She is alert and well oriented. DIAGNOSTIC DATA: Her lab work reveals a white count of 8.3, hemoglobin of 13.6, platelet count of 191,000. INR 1.0. Her creatinine is 0.91. LFTs are normal. Lipase was 55, albumin 3.6. Chest x-ray showed no acute disease. CT abdomen and pelvis and abdominal ultrasound as mentioned above. IMPRESSION: Upper abdominal pain. The patient points mainly to the right upper quadrant and she states the pain radiated a little bit towards the right mid abdomen. There is some history of fatty food intolerance. She had a negative upper GI series a few months ago. She has been taking some NSAIDs, which does raise the possibility of peptic ulcer disease. No sign of vascular disease. PLAN: Would suggest a HIDA scan to see if there is gallbladder dyskinesia; and if negative, consider an upper endoscopy. The patient and her daughter agree with this plan. We will follow with you. Thank you for this consult. MD JOSE Remy/pallavi , 10:31 AM , 10:41 AM
[2018-02-08] MEDS ORDERED: Sincalide Inj 5 MCG Vial ONE (15:06)
--- NOTE | 2018-02-08 16:17 | NM ---
EXAM DATE: 02/08/2018 2:15 PM EDT AGE/SEX: 87 years / Female INDICATIONS: Right upper quadrant pain for one day. CLINICAL DATA: This is the patient's initial encounter. Patient reports that signs and symptoms have been present for 1 day and indicates a pain score of 5/10. MEDICAL/SURGICAL HISTORY: Chronic obstructive pulmonary disease. Hypertension. sectio n. COMPARISON: [facility] [place] ABDOMEN & PELVIS W CONTRAST, 02/06/2018. . No external comparison. DOSE: 4.2 mCi Tc-99m mebrofenin i.v. Medication: 1.36 mcg Cholecystokinin IV Similar symptomatic response Cholecystokinin was administered by slow infusion over 8 minutes beginning at 65 min. min utes. TECHNIQUE: Following the intravenous administration of radiotracer, dynamic sequential images were pe rformed with continuous acquisition. Time-activity curves were generated. FINDINGS: Hepatic Kinetics: There is prompt uptake of radiotracer in the liver. No focal defects are seen. Ther e is normal rate of washout from the hepatic parenchyma. Biliary Clearance: Activity is first seen in the extrahepatic biliary system at 15 minutes. There is normal excretion into the small bowel. Gallbladder: Activity is first seen in the gallbladder at 25 minutes. Post-CCK: After CCK administration, there is emptying of the gallbladder with a 55% ejection fraction . Common bile duct kinetics are normal and there is no evidence of biliary obstruction. Similar symp tomatic response after cholecystokinin infusion. Biliary-Enteric Reflux: None observed. CONCLUSION: 1. Negative examination. Electronically signed by: Erik Batista MD 02/08/2018 4:15 PM EDT
--- NOTE | 2018-02-09 07:49 | P.PN ---
Subjective Interval history: Follow-up for epigastric pain. Patient reports her abdominal pain returned last night around dinnertime, worse at the epigastric and right upper quadrant. She states she was able to still tolerate her liquid tray for dinner. Denies any nausea or vomiting. She is not sure she has had a bowel movement. Denies fevers or chills. She is agreeable to EGD today. She states she has had problems with stomach ulcers in the past. Physical Exam Vital signs: Vital Signs 02/08/18 08:00 02/08/18 11:28 02/08/18 19:33 Temperature 98.4 F 98.3 F Pulse Rate 62 60 64 Respiratory Rate 20 17 Blood Pressure 119/52 L 147/67 H Pulse Oximetry 95 96 02/09/18 00:00 02/09/18 00:13 02/09/18 03:44 Temperature 98.5 F 98.4 F Pulse Rate 55 L 50 L 52 L Respiratory Rate 17 16 Blood Pressure 117/57 L 128/60 Pulse Oximetry 94 L 97 02/09/18 04:07 Temperature Pulse Rate 51 L Respiratory Rate Blood Pressure Pulse Oximetry Intake & Output 02/08/18 02/09/18 02/09/18 18:59 06:59 18:59 Intake Total 620 / 620 Balance 620 / 620 Intake: Oral 620 / 620 Other: # Voids 2 Date of Last Bowel Movement 02/07/18 Narrative: GENERAL: Well-nourished, well-developed pleasant elderly female patient in [facility]. SKIN: Warm and dry. No rash. HEENT: Normocephalic. Atraumatic. Pupils equal and round. Mucous membranes pink and moist. CARDIOVASCULAR: Regular rate and rhythm. No murmur appreciated. RESPIRATORY: No accessory muscle use. Clear to auscultation. Breath sounds equal bilaterally. GASTROINTESTINAL: Abdomen soft, nondistended, epigastric and RUQ TTP. Normoactive bowel sounds x4. MUSCULOSKELETAL: No obvious deformities. Extremities without clubbing, cyanosis , or edema. NEUROLOGICAL: Awake and alert. No obvious cranial nerve deficits. Motor grossly within normal limits. Moving all extremities spontaneously. Normal speech. PSYCHIATRIC: Appropriate mood and affect; insight and judgment normal. Results - Labs CBC & Chem 7: 02/06/18 17:15 02/06/18 17:15 - Imaging Impressions Abdomen/Pelvis CT 02/06/18 17:06 CONCLUSION: 1. Prominent gallbladder without definite gallstones 2. Large amount of stool seen throughout the colon 3. Lung bases are clear. Gallbladder Ultrasound 02/06/18 17:06 CONCLUSION: 1. Gallstones in a somewhat benign-appearing gallbladder without tenderness to palpation. Chest X-Ray 02/06/18 21:58 CONCLUSION: Negative for an acute process Bile Acid Absorption NM 02/08/18 00:00 CONCLUSION: 1. Negative examination. Assessment and Plan - Assessment (1) Abdominal pain Code(s): R10.9 - Unspecified abdominal pain Status: Acute (2) Cholelithiases Code(s): K80.20 - Calculus of gallbladder without cholecystitis without obstruction Status: Chronic - Plan 87-year-old -Filipino female with HTN and HLD initially admitted to the chest pain center for evaluation of epigastric/chest pain. ACS has been ruled out, and care has been transferred to the hospitalist for further evaluation of patient's ongoing epigastric pain. Epigastric pain: Unclear etiology, Patient sounds like she does have a history of gallbladder colic exacerbated by fatty foods. However, her presentation during this admission is more epigastric pain and was unrelated to eating any fatty foods. GB ultrasound on admission showing otherwise benign appearing gallbladder with cholelithiasis CT A/P showing prominent gallbladder and no stones LFTs and lipase within normal limits No leukocytosis or fever Patient admits to daily use of naproxen, consult GI for possible EGD to evaluate for gastritis, ulcers, etc. Start Protonix Tylenol as needed, Maalox as needed -Liquid diet per GI -HIDA scan unremarkable -GI planning for EGD today 02/09 HTN: Chronic, BP well-controlled Resume home losartan and monitor BPs HLD: Chronic Resume home statin DVT prophylaxis: heparin sq Discharge Planning: Going for EGD today. Further disposition to follow.
[2018-02-09] MEDS: Heparin - SQ 10,000 UNITS/ML Vial SQ SCH ×2 (09:07→22:16)
[2018-02-09] MEDS ORDERED: Lidocaine PF 1% Inj 5 ML Syringe OTHER ONE (14:13)
--- NOTE | 2018-02-09 14:45 | GIPROC ---
[facility] [address] [facility]. [facility], [id number] EGD PROCEDURE REPORT EXAM DATE: 02/09/2018 PATIENT NAME: Jason Painting MR #: [id number] BIRTHDATE: 1930 ATTENDING: Greg Jones MD ORDER #: [id number] TECHNICIAN'S HELPER: Ulises Coello and Dany Benjamin STATUS: inpatient INDICATIONS: The patient is a 87 yr old female here for an EGD due to epigastric abdominal pain PROCEDURE PERFORMED: EGD, diagnostic MEDICATIONS: None and Per Anesthesia. TOPICAL ANESTHETIC: none CONSENT: The patient understands the risks and benefits of the procedure and understands that these risks include, but are not limited to: sedation, allergic reaction, infection, perforation and/or bleeding. Alternative means of evaluation and treatment include, among others: physical exam, x-rays, and/or surgical intervention. The patient elects to proceed with this endoscopic procedure. medical equipment was checked for proper function. Hand hygiene and appropriate measures for infection prevention was taken. After the risks, benefits and alternatives of the procedure were thoroughly explained, Informed consent was verified, confirmed and timeout was successfully executed by the treatment team. The patient was anesthetized with topical anesthesia and the Pentax EG-[id number] endoscope was introduced through the mouth and advanced to the third portion of the duodenum. Retroflexion was performed and was normal The gastroscope was then slowly withdrawn and removed. ESOPHAGUS: The z-line was located 42cm from the incisors. The z-line appeared normal. The mucosa of the esophagus appeared normal. STOMACH: The mucosa of the stomach appeared normal. DUODENUM: The duodenal mucosa appeared normal. ADVERSE EVENTS: There were no complications. IMPRESSIONS: 1. The z-line was located 42cm from the incisors 2. The esophagus appeared normal 3. The mucosa of the stomach appeared normal 4. Normal duodenal mucosa 5. Retroflexion was performed and was normal RECOMMENDATIONS: Consider surgical eval (GB) PATIENT CONDITION: stable DISPOSITION: Inpatient REPEAT EXAM: NONE Greg Jones MD eSigned: Greg Jones MD 02/09/2018 2:45 PM cc:
[2018-02-10 07:38] VITALS: RESP 18; TEMP 98.3; O2SAT 96
--- NOTE | 2018-02-10 08:58 | P.PNGI ---
Subjective Interval history: Patient is aware her upper endoscopy was unremarkable. Had some epigastric right upper quadrant pain last night. Better this morning Physical Exam Vital signs: Vital Signs 02/09/18 11:54 02/09/18 14:55 02/09/18 16:13 Temperature 98.1 F 97.3 F L 97.9 F Pulse Rate 60 60 51 L Respiratory Rate 20 18 20 Blood Pressure 146/67 H 162/72 H 180/113 H Pulse Oximetry 95 96 97 02/09/18 16:41 02/09/18 20:00 02/10/18 00:00 Temperature 98.3 F 98.4 F Pulse Rate 62 56 L Respiratory Rate 16 16 Blood Pressure 180/78 H 157/71 H 114/56 L Pulse Oximetry 96 92 L 02/10/18 07:35 Temperature 98.3 F Pulse Rate 58 L Respiratory Rate 18 Blood Pressure 163/72 H Pulse Oximetry 96 Intake & Output 02/09/18 02/10/18 02/10/18 18:59 06:59 18:59 Intake Total 850 / 850 Balance 850 / 850 Intake: Oral 500 / 500 Anesthesia Amount 350 / 350 Other: Date of Last Bowel Movement 02/07/18 - Constitutional no acute distress - Routine Neck Exam Present: supple - Routine Abdominal Exam Present: soft, normoactive bowel sounds, tenderness. Absent: distended, rebound - Detailed Abdominal Exam Palpation/Percussion: Absent: hepatomegaly, Montemayor's sign - Routine Neurological Exam Present: alert, oriented X3 Results - Labs CBC & Chem 7: 02/06/18 17:15 02/06/18 17:15 Assessment and Plan - Attending Attestation Impression; 1. Epigastric/right upper quadrant pain--HIDA scan reportedly was normal but she had symptoms during the exam. PLAN: Would consider general surgery evaluation prior to any discharge
[2018-02-10] MEDS: Heparin - SQ 10,000 UNITS/ML Vial SQ SCH (09:16)
--- NOTE | 2018-02-10 09:40 | P.PN ---
Subjective Interval history: Follow-up for epigastric pain. The patient reports feeling better today. She tolerated her liquid tray last night for dinner, requesting more solid foods. She states she still does get some epigastric discomfort when she eats a large meal, and then she belches and the pain goes away. States she had a normal bowel movement this morning. Denies any nausea or vomiting. Denies any other medical complaints at this time. Discussed with daughter at bedside. Physical Exam Vital signs: Vital Signs 02/09/18 11:54 02/09/18 14:55 02/09/18 16:13 Temperature 98.1 F 97.3 F L 97.9 F Pulse Rate 60 60 51 L Respiratory Rate 20 18 20 Blood Pressure 146/67 H 162/72 H 180/113 H Pulse Oximetry 95 96 97 02/09/18 16:41 02/09/18 20:00 02/10/18 00:00 Temperature 98.3 F 98.4 F Pulse Rate 62 56 L Respiratory Rate 16 16 Blood Pressure 180/78 H 157/71 H 114/56 L Pulse Oximetry 96 92 L 02/10/18 07:35 Temperature 98.3 F Pulse Rate 58 L Respiratory Rate 18 Blood Pressure 163/72 H Pulse Oximetry 96 Intake & Output 02/09/18 02/10/18 02/10/18 18:59 06:59 18:59 Intake Total 850 / 850 Balance 850 / 850 Intake: Oral 500 / 500 Anesthesia Amount 350 / 350 Other: Date of Last Bowel Movement 02/07/18 Narrative: GENERAL: Well-nourished, well-developed pleasant elderly female patient in [facility]. SKIN: Warm and dry. No rash. HEENT: Normocephalic. Atraumatic. Pupils equal and round. Mucous membranes pink and moist. CARDIOVASCULAR: Regular rate and rhythm. No murmur appreciated. RESPIRATORY: No accessory muscle use. Clear to auscultation. Breath sounds equal bilaterally. GASTROINTESTINAL: Abdomen soft, nondistended, nontender today. Normoactive bowel sounds x4. MUSCULOSKELETAL: No obvious deformities. Extremities without clubbing, cyanosis , or edema. NEUROLOGICAL: Awake and alert. No obvious cranial nerve deficits. Normal speech. PSYCHIATRIC: Appropriate mood and affect; insight and judgment normal. Results - Labs CBC & Chem 7: 02/06/18 17:15 02/06/18 17:15 - Imaging Abdomen/Pelvis CT 02/06/18 17:06 CONCLUSION: 1. Prominent gallbladder without definite gallstones 2. Large amount of stool seen throughout the colon 3. Lung bases are clear. Gallbladder Ultrasound 02/06/18 17:06 CONCLUSION: 1. Gallstones in a somewhat benign-appearing gallbladder without tenderness to palpation. Chest X-Ray 02/06/18 21:58 CONCLUSION: Negative for an acute process Bile Acid Absorption NM 02/08/18 00:00 CONCLUSION: 1. Negative examination. - Procedures 02/09/18EGD with Dr. Jones: 1. The z-line was located 42cm from the incisors 2. The esophagus appeared normal 3. The mucosa of the stomach appeared normal 4. Normal duodenal mucosa 5. Retroflexion was performed and was normal Assessment and Plan - Assessment (1) Abdominal pain Code(s): R10.9 - Unspecified abdominal pain Status: Acute (2) Cholelithiases Code(s): K80.20 - Calculus of gallbladder without cholecystitis without obstruction Status: Chronic - Plan 87-year-old -[place] female with HTN and HLD initially admitted to the chest pain center for evaluation of epigastric/chest pain. ACS has been ruled out, and care has been transferred to the hospitalist for further evaluation of patient's ongoing epigastric pain. Epigastric pain: Unclear etiology, Patient sounds like she does have a history of gallbladder colic exacerbated by fatty foods. However, her presentation during this admission is more epigastric pain and was unrelated to eating any fatty foods. GB ultrasound on admission showing otherwise benign appearing gallbladder with cholelithiasis CT A/P showing prominent gallbladder and no stones LFTs and lipase within normal limits No leukocytosis or fever Patient admits to daily use of naproxen, consult GI for possible EGD to evaluate for gastritis, ulcers, etc. Start Protonix Tylenol as needed, Maalox as needed -Liquid diet per GI, advanced to soft diet today -HIDA scan unremarkable -EGD 02/09 unremarkable -GI recommending general surgery eval prior to discharge, consulted general surgery -overall symptoms improving and patient tolerating oral intake HTN: Chronic, BP well-controlled Resume home losartan and monitor BPs HLD: Chronic Resume home statin DVT prophylaxis: heparin sq Discharge Planning: Plan to discharge if cleared by general surgery today. See discharge summary.
--- NOTE | 2018-02-10 11:34 | P.CONGS ---
[facility] Gen Surgery Consult Note Consult date: 02/10/18 Reason for consult: abdominal pain Requesting physician: Evonne Rosa Narrative: This is an 87 year old female who is poor historian with a past medical history of hypertension and dyslipidemia. Her daughter is at the bedside who is able to help with the history of present illness. The daughter states that her mother has been experiencing vague abdominal pain for about 4 months now. She reports weight gain. She reports no nausea or vomiting. She reports no dietary intolerances. A CT abdomen/pelvis was obtained which shows a prominent gallbladder without definite stones with a large amount of stool throughout the colon. A gallbladder ultrasound was obtained which shows a normal appearing gallbladder. A HIDA scan was obtained which was normal. An EGD was done which was unremarkable. The patient continues to have abdominal pain and a General Surgery consultation has been requested. Review of Systems All other systems reviewed negative except as stated in [facility] - History History Provided By: Patient, Family Member (daughter ) - Medical History Medical History: Medical History (Last Updated 02/10/18 @ 16:39 by IRENE Junior) Dyslipidemia Hypertension - Surgical History Surgical History: Surgical History (Last Updated 02/10/18 @ 16:39 by IRENE Junior) H/O section History of total abdominal hysterectomy - Tobacco History Second Hand Smoke Exposure: No Smoking Status: Never smoker - Alcohol History How Often Do You Have a Drink Containing Alcohol: Never - Substance Use History Substance History: No History of Abuse - Travel History Recent Travel in the [place] Within the Last 8 Weeks: No Recent Travel Out of the Country Within the Last 8 Weeks: No - Immunization History Tetanus Immunization: Unsure Medications and Allergies Allergies Allergy/AdvReac Type Severity Reaction Status Date / Time No Known Allergies Allergy Verified 02/06/18 17:02 Home Medications Medication Instructions Recorded Confirmed Type aspirin [Aspir-81] 81 mg PO DAILY 02/07/18 02/07/18 History losartan 50 mg PO DAILY 02/07/18 02/07/18 History lovastatin 40 mg PO DAILY 02/07/18 02/07/18 History Active Medications: Active Medications Acetaminophen (Tylenol) 500 mg PO Q4H PRN PRN Reason: HEADACHE Last Admin: 02/07/18 09:02 Dose: 500 mg Hydrocodone Bitart/Acetaminophen ([place] 7.5/325) 1 tab PO Q4H PRN PRN Reason: PAIN SCALE 1 TO 7 Al Hydrox/Mg Hydrox/Simethicone (Mag-Al Plus Susp Liq) 30 ml PO Q6H PRN PRN Reason: INDIGESTION Aspirin (Ecotrin) 81 mg PO DAILY [facility] Last Admin: 02/10/18 09:15 Dose: 81 mg Heparin Sodium (Porcine) (Heparin Inj) 5,000 units SQ Q12HR [facility] Last Admin: 02/10/18 09:16 Dose: 5,000 units Losartan Potassium (Cozaar) 50 mg PO DAILY [facility] Last Admin: 02/10/18 09:16 Dose: 50 mg Morphine Sulfate (Morphine Inj) 2 mg IV.PUSH Q4H PRN PRN Reason: PAIN SCALE 8 TO 10 Ondansetron HCl (Zofran Inj) 4 mg IV.PUSH Q6H PRN PRN Reason: NAUSEA Pantoprazole Sodium (Protonix) 40 mg PO DAILY [facility] Last Admin: 02/10/18 09:16 Dose: 40 mg Pravastatin Sodium (Pravachol) 40 mg PO DAILY [facility] Last Admin: 02/10/18 09:16 Dose: 40 mg Sodium Chloride (Ns Flush) 2 ml IV.FLUSH BID [facility] Last Admin: 02/10/18 09:16 Dose: 2 ml Sodium Chloride (Ns Flush) 2 ml IV.FLUSH PRN PRN PRN Reason: FLUSH AFTER USING IV ACCESS Exam Vital signs: Laboratory Results WBC 8.3 th/mm3 (4.0-11.0) 02/06/18 17:15 RBC 3.98 mil/mm3 (4.00-5.30) L 02/06/18 17:15 Hgb 13.6 gm/dL (11.6-15.3) 02/06/18 17:15 Hct 38.1 % (35.0-46.0) 02/06/18 17:15 MCV 95.9 fL (80.0-100.0) 02/06/18 17:15 MCH 34.1 pg (27.0-34.0) H 02/06/18 17:15 MCHC 35.6 % (32.0-36.0) 02/06/18 17:15 RDW 14.3 % (11.6-17.2) 02/06/18 17:15 Plt Count 191 th/mm3 (150-450) 02/06/18 17:15 MPV 10.2 fL (7.0-11.0) 02/06/18 17:15 Prelim Diff (Auto) Slide review pending 02/06/18 17:15 Neut % (Auto) 57.3 % (16.0-70.0) 02/06/18 17:15 Lymph % (Auto) 31.3 % (9.0-44.0) 02/06/18 17:15 [place] % (Auto) 9.1 % (0.0-8.0) H 02/06/18 17:15 Eos % (Auto) 1.6 % (0.0-4.0) 02/06/18 17:15 Baso % (Auto) 0.7 % (0.0-2.0) 02/06/18 17:15 Neut # (Auto) 4.8 th/mm3 (1.8-7.7) 02/06/18 17:15 Lymph # (Auto) 2.6 th/mm3 (1.0-4.8) 02/06/18 17:15 [place] # (Auto) 0.8 th/mm3 (0.0-0.9) 02/06/18 17:15 Eos # (Auto) 0.1 th/mm3 (0.0-0.4) 02/06/18 17:15 Baso # (Auto) 0.1 th/mm3 (0.0-0.2) 02/06/18 17:15 WBC Differential . 02/06/18 17:15 Diff Scan Auto diff confirmed 02/06/18 17:15 Differential Comment . 02/06/18 17:15 Platelet Estimate Normal (Normal) 02/06/18 17:15 Platelet Morphology Normal (Normal) 02/06/18 17:15 PT 10.3 sec (9.8-11.6) 02/06/18 17:15 INR 1.0 Ratio 02/06/18 17:15 APTT 22.2 sec (24.3-30.1) L 02/06/18 17:15 Sodium 138 meq/L (136-145) 02/06/18 17:15 Potassium 4.9 meq/L (3.5-5.1) 02/06/18 17:15 Chloride 104 meq/L (98-107) 02/06/18 17:15 Carbon Dioxide 26.8 meq/L (21.0-32.0) 02/06/18 17:15 Anion Gap 7 meq/L (5-15) 02/06/18 17:15 BUN 20 mg/dL (7-18) H 02/06/18 17:15 Creatinine 0.91 mg/dL (0.50-1.00) 02/06/18 17:15 Estimated GFR 71 mL/min (>89) L 02/06/18 17:15 Random Glucose 89 mg/dL (74-106) 02/06/18 17:15 Lactic Acid 1.4 mmol/L (0.4-2.0) 02/06/18 18:00 Calcium 9.3 mg/dL (8.5-10.1) 02/06/18 17:15 Total Bilirubin 0.7 mg/dL (0.2-1.0) 02/06/18 17:15 AST 34 U/L (15-37) 02/06/18 17:15 ALT 23 U/L (10-53) 02/06/18 17:15 Alkaline Phosphatase 99 U/L (45-117) 02/06/18 17:15 Total Creatine Kinase 59 U/L (26-192) 02/07/18 03:00 CK-MB (CK-2) Less than 1.0 ng/mL (0.5-3.6) 02/06/18 17:15 Troponin I Less than 0.02 ng/mL (0.02-0.05) L 02/07/18 03:00 Total Protein 8.2 g/dL (6.4-8.2) 02/06/18 17:15 Albumin 3.6 g/dL (3.4-5.0) 02/06/18 17:15 Lipase 55 U/L (73-393) L 02/06/18 17:15 Urine Color Yellow (Yellw/Straw) 02/07/18 08:50 Urine Clarity Clear (Clear) 02/07/18 08:50 Urine pH 6.0 (5.0-8.5) 02/07/18 08:50 Ur Specific [place] 1.049 (1.002-1.035) H 02/07/18 08:50 Urine Protein Negative mg/dL (Neg-Trace) 02/07/18 08:50 Urine Glucose (UA) Negative mg/dL (Negative) 02/07/18 08:50 Urine Ketones Negative mg/dL (Negative) 02/07/18 08:50 Urine Occult Blood Negative (Negative) 02/07/18 08:50 Urine Nitrate Negative (Negative) 02/07/18 08:50 Urine Bilirubin Negative (Negative) 02/07/18 08:50 Urine Urobilinogen 2.0 mg/dL (Less than 2) H 02/07/18 08:50 Ur Leukocyte Esterase Negative (Negative) 02/07/18 08:50 Urine RBC 1 /hpf (0-3) 02/07/18 08:50 Urine WBC Less than 1 /hpf (0-5) 02/07/18 08:50 Ur Squamous Epith Cells <1 /hpf (0-5) 02/07/18 08:50 Urine Mucus Few /lpf (Occasional) H 02/07/18 08:50 Micro UA Comment Culture not ind 02/07/18 08:50 Ur Microscopic Review Not Reportable 02/07/18 08:50 Urine Culture Comments Culture not ind 02/07/18 08:50 Impressions Abdomen/Pelvis CT 02/06/18 17:06 CONCLUSION: 1. Prominent gallbladder without definite gallstones 2. Large amount of stool seen throughout the colon 3. Lung bases are clear. Gallbladder Ultrasound 02/06/18 17:06 CONCLUSION: 1. Gallstones in a somewhat benign-appearing gallbladder without tenderness to palpation. Chest X-Ray 02/06/18 21:58 CONCLUSION: Negative for an acute process Bile Acid Absorption NM 02/08/18 00:00 CONCLUSION: 1. Negative examination. Narrative: GENERAL: Pleasant 87 year old female resting in bed in no acute distress. SKIN: Warm and dry. HEAD: Atraumatic. Normocephalic. EYES: Pupils equal and round. No scleral icterus. No injection or drainage. ENT: No nasal bleeding or discharge. Mucous membranes pink and moist. NECK: Trachea midline. CARDIOVASCULAR: Regular rate and rhythm. RESPIRATORY: No accessory muscle use. Clear to auscultation. Breath sounds equal bilaterally. GASTROINTESTINAL: Abdomen soft, nondistended. She has mild tenderness with palpation in the RUQ and LLQ. Very faint low transverse scar. MUSCULOSKELETAL: Extremities without clubbing, cyanosis, or edema. No obvious deformities. NEUROLOGICAL: Awake and alert. No obvious cranial nerve deficits. Motor grossly within normal limits. Five out of 5 muscle strength in the arms and legs. Normal speech. PSYCHIATRIC: Appropriate mood and affect; insight and judgment normal. Results - Labs 02/06/18 17:15 02/06/18 17:15 - Imaging Imaging: ITS Impressions Abdomen/Pelvis CT 02/06/18 17:06 CONCLUSION: 1. Prominent gallbladder without definite gallstones 2. Large amount of stool seen throughout the colon 3. Lung bases are clear. Gallbladder Ultrasound 02/06/18 17:06 CONCLUSION: 1. Gallstones in a somewhat benign-appearing gallbladder without tenderness to palpation. Chest X-Ray 02/06/18 21:58 CONCLUSION: Negative for an acute process Bile Acid Absorption NM 02/08/18 00:00 CONCLUSION: 1. Negative examination. HIDA scan: report reviewed CT scan - abdomen: image reviewed US - abdomen: report reviewed Assessment and Plan - Assessment (1) Abdominal pain Code(s): R10.9 - Unspecified abdominal pain Status: Acute Plan: 87 year old female with abdominal pain -Pain likely from constipation -Recommend bowel regimen -Unlikely gallbladder issues -Discussed with patient as well and daughter at bedside -No surgical intervention planned -Thank you for this consult - Plan Discussed Condition With: Dr. hO SEGUNDO Ms. Painting and daughter at bedside - Attending Attestation I CERTIFY AND ATTEST THAT I PERSONALLY SAW AND EXAMINED THE PATIENT. STRUCTURAL METAL FABRICATOR APPRENTICE DOCUMENTED OUR VISIT. I REVIEWED ALL LABS AND XRAYS. I DO NOT THINK HER PAIN IS FROM HER SINGLE SMALL GALLSTONE. HER CT SHOWS A LARGE AMOUNT OF STOOL IN RIGHT AND TRANSVERSE COLON C/W CONSTIPATION. I THINK THIS IS THE MORE LIKELY SOURCE OF HER PAIN. D/W PATIENT AND DAUGHTER AT THE BEDSIDE AND THEY AGREE. NO SURGICAL INTERVENTION REQUIRED. I OFFERED HER FU IN OFFICE OUTPATIENT IF PAIN PERSISTS. RECOMMENDED DAILY LAXATIVES. WILL ORDER MOM AND MIRALAX NOW. WILL SEE PRN, PLEASE CALL WITH ANY CONCERNS. LAURENCE RHOADES MD FACS
[2018-02-10 12:08] VITALS: BP 147/68; PULSE 60
[2018-02-10] MEDS ORDERED: Polyethylene Glycol 3350 17 GM Packet PO SCH (13:00)
--- NOTE | 2018-02-11 17:18 | P.DS ---
Date of admission: 02/06/18 21:52 Primary care physician: UNKNOWN Brief History from admission: This is an 87-year-old female with history of hypertension, hyperlipidemia, gallstones that presents to ED via [facility] with complaint of abdominal pain. Patient points right upper quadrant. She is currently been having this intermittently for at least 4 months. Has not found any particular to bring on the discomfort. States that yesterday's episode began around 2:00 in the afternoon. She had nothing for lunch. For breakfast she had yogurt, banana, and some Cheerios. And no discomfort afterwards. Denies nausea or vomiting. Denies diarrhea or constipation. States she had a bowel moment yesterday which is her normal bowel and. Denies any blood in stool. Denies shortness of breath or diaphoresis. She also complains of feeling palpitations in her abdomen. She describes it as a throbbing. That is also been intermittent for [address] Alfaro for some of the symptoms and had a Holter monitor and her daughter who is now in the room states that she was told that her thing was okay. Patient also saw a fire department battalion chief and Debbi had some tests done and showed that she had some gallstones but did not feels that that was causing her the issues. She was concerned yesterday when the discomfort was more intense. She does not know how long it lasted but it did resolve some time while in the ED. She denies ever having any chest discomforts. Hypertension, hyperlipidemia, gallstones. Denies diabetes and known CAD. Lifetime non-smoker. Denies alcohol or illicit drug use. Denies family history of CAD. DS: Diagnosis - Discharge Diagnosis (1) Abdominal pain Status: Acute (2) Cholelithiases Status: Chronic DS: Medications - Discharge Medications Prescriptions: pantoprazole 40 mg PO DAILY #30 tab DS: Summary Hospital Course: 87-year-old -[place] female with HTN and HLD initially admitted to the chest pain center for evaluation of epigastric/chest pain. ACS has been ruled out, and care has been transferred to the hospitalist for further evaluation of patient's ongoing epigastric pain. Epigastric pain: Unclear etiology, Patient sounds like she does have a history of gallbladder colic exacerbated by fatty foods. However, her presentation during this admission is more epigastric pain and was unrelated to eating any fatty foods. GB ultrasound on admission showing otherwise benign appearing gallbladder with cholelithiasis. CT A/P showing prominent gallbladder and no stones. HIDA scan unremarkable. LFTs and lipase within normal limits. No leukocytosis or fever. Patient admits to daily use of naproxen, consult GI for possible EGD to evaluate for gastritis, ulcers, etc. Start Protonix. Tylenol as needed, Maalox as needed. EGD 02/09 unremarkable. Liquid diet per GI, advanced to soft diet, patient tolerating well. Discussed with Dr. Jones with GI, recommending general surgery eval prior to discharge, consulted general surgery , no acute surgical intervention indicated, constipation likely culprit of patient's abdominal pain, given MOM/Miralax. Patient to follow up with general surgeon Dr. Casiano as outpatient if symptoms persist. Patient tolerating oral intake. All questions answered with the patient and daughter. - Time Spent with Patient Total time spent providing and/or coordinating discharge services: Less than 30 minutes - Quality: VTE Deep Vein Thrombosis/Pulmonary Embolism Present on Admission: No Exam Vital signs: Intake & Output 02/10/18 02/11/18 02/11/18 18:59 06:59 18:59 Other: Date of Last Bowel Movement 02/07/18 Narrative: GENERAL: Well-nourished, well-developed pleasant elderly female patient in [facility]. SKIN: Warm and dry. No rash. HEENT: Normocephalic. Atraumatic. Pupils equal and round. Mucous membranes pink and moist. CARDIOVASCULAR: Regular rate and rhythm. No murmur appreciated. RESPIRATORY: No accessory muscle use. Clear to auscultation. Breath sounds equal bilaterally. GASTROINTESTINAL: Abdomen soft, nondistended, nontender today. Normoactive bowel sounds x4. MUSCULOSKELETAL: No obvious deformities. Extremities without clubbing, cyanosis , or edema. NEUROLOGICAL: Awake and alert. No obvious cranial nerve deficits. Normal speech. PSYCHIATRIC: Appropriate mood and affect; insight and judgment normal. Results Procedures completed during hospitalization: 02/09/18EGD with Dr. Jones: 1. The z-line was located 42cm from the incisors 2. The esophagus appeared normal 3. The mucosa of the stomach appeared normal 4. Normal duodenal mucosa 5. Retroflexion was performed and was normal - Impressions ITS Impressions Abdomen/Pelvis CT 02/06/18 17:06 CONCLUSION: 1. Prominent gallbladder without definite gallstones 2. Large amount of stool seen throughout the colon 3. Lung bases are clear. Gallbladder Ultrasound 02/06/18 17:06 CONCLUSION: 1. Gallstones in a somewhat benign-appearing gallbladder without tenderness to palpation. Chest X-Ray 02/06/18 21:58 CONCLUSION: Negative for an acute process Bile Acid Absorption NM 02/08/18 00:00 CONCLUSION: 1. Negative examination. Discharge Plan - Discharge Disposition Patient Disposition: 01 Discharge Home - Discharge Condition Condition: Stable - Discharge Order Discharge Orders: Discharge Order (Routine); Ordered 02/10/18 Ordered By: Evonne Rosa - Discharge Details Anticipated Discharge Date: 02/10/18 Discharge Comment: Discharge when cleared by general surgery and tolerating oral intake. - Physicians Team Primary Care Provider: UNKNOWN, Attending Provider: Kirk Ellison Other Providers: Sheryl Saucedo ; Dany Kaur MD ; Case Casiano MD
== END 2018-02-10 13:37 | disposition home or self-care (01) ==
LOC: NEPC 16:49 → NEDA 16:49 → NEPFCDU 23:10
PROVIDERS: ADMIT Hospitalist; ATTEND Hospitalist
PROC: PANENDO (2018-02-09 14:13)